=== PATIENT | female | born 1950 | race Caucasian/White ===

== ENCOUNTER → 2016-11-14 | Outpatient (CLI) | payer OTHER ==
[~2016-11-14] MED LIST: ALENDRONATE SOD70 M1 PO; AUGMENTIN 875-1 EACH PO; CEFTIN500 MG PO; CELECOXIB200 MG PO; CITRACAL PETITE1 TAB PO; IMODIUM MULTI-S1 TAB PO; LEVOTHYROXINE0.05 M2 PO; LEVOTHYROXINE0.2 M2 PO; MULTI VITAMINS1 TAB PO; NEXIUM20 MG PO; PREDNISONE 20MG20 MG PO; PROMETHAZINE12.5 M1 PO; SYNTHROID0.3 MG PO; TESSALON PERLE100 M1 PO; ZITHROMAX TRI-500 MG PO; ZOFRAN ODT8 M1 PO
[2016-11-14 11:23] LABS: BUN 20 mg/dL (7-18)
[2016-11-14 11:42] LABS: GFR (ESTIMATED) 84 ML/MIN (59-)
--- NOTE | 2016-11-14 12:50 | RADIOLOGY REPORT PS360 ---
KNEE-3 VIEWS-LT ORDERING PHYSICIAN : LUCITA Roberts PATIENT AGE: 66 years GENDER: Female INDICATION: LEFT LEG PAIN ... Patient fell on concrete yesterday landed on her left knee. TECHNIQUE: 3 views left knee COMPARISON: 04/12/2013 also October 2012 FINDINGS Previous ACL repair evident with associated findings. The oblique tunnel through the medial proximal tibia is most evident reflecting such. There are degenerative changes at the medial compartment with joint space narrowing and marginal osteophytes most evident about the medial compartment. There is been progressive narrowing of the medial compartment. On the oblique view there is a subtle lucent area at the medial femoral condyle towards notch which could reflect a small osteochondral defect measuring 6 mm wide 3 mm depth. Equivocal observation, But noted Lateral compartment is intact. Diffuse demineralization. Small joint effusion likely at suprapatellar bursa. Minimal spurring from inferior margin of the patella at patellofemoral joint IMPRESSION. 1.. previous ACL repair evident. 2. Progressive Arthritic changes medial compartment since 2012. Progressive narrowing medial compartment slight progression marginal osteophyte and sclerosis. 3. Question a small osteochondral defect at the medial femoral condyle towards notch
--- NOTE | 2016-11-15 13:23 | RADIOLOGY REPORT PS360 ---
HIP LT 2-3V W/PELVIS IF PERFOR ORDERING PHYSICIAN : LUCITA Roberts PATIENT AGE: 66 years GENDER: Female INDICATION: LEFT LEG PAIN TECHNIQUE: AP and frog-leg view left hip with AP pelvis. COMPARISON: None FINDINGS Osseous structures are intact with no fracture evident joint space well maintained both left and right hip Osseous pelvis intact sacrum unremarkable. Hips symmetric. IMPRESSION: Negative left hip. Negative AP pelvis
== END ==
LOC: RAD 09:54 → LAB 09:54
PROVIDERS: Physician Assistant
DX: E03.9 Hypothyroidism, unspecified (principal); Z13.29 Encounter for screening for other suspected endocrine disorder; M25.552 Pain in left hip; M25.562 Pain in left knee